=== PATIENT | female | born 1960 | race Caucasian/White ===

== ENCOUNTER 2019-10-13 08:39 | Day surgery (SDC) | payer BC ==
[2019-10-13] MEDS ORDERED: LIDOCAINE 2% MDV (20MG/ML) 20ML VIAL IV ONE (08:40)
[2019-10-13] MEDS ORDERED: PROPOFOL 10 MG/ML VIAL IV ONE (08:40)
--- NOTE | 2019-10-20 10:51 | Operative Note ---
SURGEON: Gino Donovan MD OPERATION: COLONOSCOPY. INDICATIONS: This is a 59-year-old female with history of intermittent episodes of rectal bleeding with rectal pain who presented for colonoscopy. POSTOPERATIVE DIAGNOSES: 1. Left-sided colonic diverticulosis. 2. Grade 3 external hemorrhoids. 3. Otherwise normal colon. ANESTHESIA: Sedation is per Anesthesia. Pulse oximetry was monitored throughout the procedure to maintain O2 saturation of 90% or greater. Supplemental oxygen was administered via nasal cannula. Cardiac and vital signs were monitored throughout the duration of the procedure, and they were stable. The procedure of colonoscopy and risks and alternatives of the procedure, including the risk of bleeding and perforation, among others, were explained to the patient who voiced understanding and agreed to have the procedure done. Physical examination was performed, and the patient was found stable for sedation. PROCEDURE: The patient was placed in the left lateral position. Sedation was initiated. A digital rectal exam was performed and showed some mild external hemorrhoids with no palpable rectal masses. An Olympus PCF-180AL colonoscope was then inserted into the rectum under direct visualization. It was advanced to the cecum without difficulty. The ileocecal valve and appendiceal orifice were identified and photographed. The colonic mucosa was carefully examined upon introduction of the colonoscope. There were scattered diverticula noted in the sigmoid and descending colon. There were no other lesions noted. The colonoscope was then withdrawn while carefully examining the colonic mucosal surfaces. No other lesions were noted. In the rectum, retroflexion was performed and grade 1 internal hemorrhoids were noted. She, however, had about grade 3 external hemorrhoids. The colonoscope was then withdrawn and the procedure was terminated. The patient tolerated the procedure well without any immediate complications. The patient remained with stable vital signs and was transferred to the recovery room. RECOMMENDATIONS: 1. The patient should continue on sitz baths. 2. I will refer her for hemorrhoidectomy to one of the rectal surgeons. Thank you for allowing me to participate in the care of your patient. DEANNA
== END 2019-10-13 10:28 | disposition home or self-care (01) ==
LOC: HOP 08:39
PROVIDERS: ATTEND Internal Medicine Gastroenterology
DX: K62.5 Hemorrhage of anus and rectum (principal); K62.89 Other specified diseases of anus and rectum; K57.30 Diverticulosis of large intestine without perforation or abscess without bleeding; K64.2 Third degree hemorrhoids; E03.9 Hypothyroidism, unspecified; I10 Essential (primary) hypertension